=== PATIENT | male | born 1995 ===

== ENCOUNTER 2018-06-16 16:06 | Emergency (ER) | payer OTHER ==
--- NOTE | 2018-06-16 16:36 | RAD REPORT ---
EXAM DESCRIPTION: CT - Head Brain Wo Cont - 06/16/2018 4:29 pm CLINICAL HISTORY: elbow injury to head Trauma, head injury. COMPARISON: Facial Bones W/ Mpr dated 06/16/2018 TECHNIQUE: All CT scans are performed using dose optimization technique as appropriate and may inclu de automated exposure control or mA/KV adjustment according to patient size. FINDINGS: No intracranial hemorrhage, hydrocephalus or extra-axial fluid collection.No areas of brai n edema or evidence of midline shift. The paranasal sinuses and mastoids are clear. The calvarium is intact. IMPRESSION: No acute intracranial abnormality.
--- NOTE | 2018-06-16 16:40 | RAD REPORT ---
EXAM DESCRIPTION: CT - CTFB CLINICAL HISTORY: elbow injury to face Trauma to the face, pain and swelling. COMPARISON: No comparisons TECHNIQUE: Axial 2 mm thick images of the face were obtained with sagittal and coronal reconstructio n images. All CT scans are performed using dose optimization technique as appropriate and may include automated exposure control or mA/KV adjustment according to patient size. FINDINGS: No acute facial bone fracture is seen.The mandible is intact. The globes and orbital contents are grossly unremarkable.The paranasal sinuses and mastoids are clear . IMPRESSION: Negative for facial bone fracture.
[2018-06-16] MEDS ORDERED: LIDOCAINE 1% MPF 5 ML VIAL ONE (16:43)
--- NOTE | 2018-06-16 18:11 | ER ---
Nurse's Notes [facility] Name: Mina Dennison Age: 22 yrs Sex: Male : 1995 Arrival Date: 06/16/2018 Time: 16:03 Bed 27 Private MD: Diagnosis: Laceration without foreign body of other part of head-Above right eye Presentation: 06/16 16:03 Presenting complaint: Patient states: "I got elbowed". Laceration noted below right aa5 eyebrow, measuring approximately 1 cm long, no active bleeding noted. Denies LOC. Transition of care: [facility]. Complicating Factors: There are no complicating factors for this patient. Onset of symptoms was June 16, 2018. Risk Assessment: Do you want to hurt yourself or someone else? Patient reports no desire to harm self or others. Initial Sepsis Screen: Does the patient meet any 2 criteria? No. Patient's initial sepsis screen is negative. Does the patient have a suspected source of infection? No. Patient's initial sepsis screen is negative. Care prior to arrival: None. 16:03 Method Of Arrival: [employer]: [facility] Unit 5 16:03 Acuity: DAVIN 4 aa5 Historical: - Allergies: 16:03 No Known Allergies; aa5 - PMHx: 16:03 None; aa5 - PSHx: 16:03 None; aa5 - Immunization history:: Last tetanus immunization: unknown. - Social history:: Smoking status: Patient/guardian denies using tobacco. - Ebola Screening: : No symptoms or risks identified at this time. Screenin:07 Abuse screen: Denies threats or abuse. Nutritional screening: No deficits noted. aa5 Tuberculosis screening: No symptoms or risk factors identified. Fall Risk None identified. Assessment: 16:08 General: Appears comfortable, Behavior is calm, cooperative. Pain: Complains of pain in aa5 below right eyebrow Pain currently is 4 out of 10 on a pain scale. Quality of pain is described as aching. Neuro: Level of Consciousness is awake, alert, obeys commands, Oriented to person, place, time, situation. Cardiovascular: No deficits noted. Respiratory: Airway is patent Respiratory effort is even, unlabored, Respiratory pattern is regular, symmetrical. GI: No signs and/or symptoms were reported involving the gastrointestinal system. : No signs and/or symptoms were reported regarding the genitourinary system. EENT: No signs and/or symptoms were reported regarding the EENT system. Derm: Skin is pink, warm \\T\\ dry. Musculoskeletal: Range of motion: intact in all extremities. Injury Description: Laceration sustained to below right eyebrow is clean, 0.5 to 2.5 cm long, not bleeding, was sustained 1-2 hours ago. 17:11 Reassessment: Patient appears in no apparent distress at this time. Patient and/or em family updated on plan of care and expected duration. Pain level reassessed. Patient is alert, oriented x 3, equal unlabored respirations, skin warm/dry/pink. pending laceration repair. 17:59 Reassessment: Patient appears in no apparent distress at this time. Patient and/or em family updated on plan of care and expected duration. Pain level reassessed. Patient is alert, oriented x 3, equal unlabored respirations, skin warm/dry/pink. Vital Signs: 16:03 BP 105 / 78; Pulse 98; Resp 16 S; Temp 98.6(O); Pulse Ox 97% on R/A; Pain 4/10; aa5 17:12 BP 112 / 56; Pulse 80; Resp 18; Pulse Ox 98% on R/A; em 18:21 BP 102 / 65; Pulse 76; Resp 18; Pulse Ox 99% on R/A; em Tatiana Coma Score: 16:30 Eye Response: spontaneous(4). Verbal Response: oriented(5). Motor Response: obeys cp commands(6). Total: 15. ED Course: 16:03 Patient arrived in ED. aa5 16:03 Arm band placed on. aa5 16:03 Patient has correct armband on for positive identification. Bed in low position. Call aa5 light in reach. Side rails up X 1. 2 Residential guards at bedside. Pt restrained with handcuffs by alf guards. 16:05 Dar Douglas PA is PHCP. cp 16:05 Rajendra Colon MD is Attending Physician. cp 16:06 Triage completed. aa5 16:10 No provider procedures requiring assistance completed. aa5 16:11 Tito Mendoza LVN is Primary Nurse. em 16:29 CT completed. Patient tolerated procedure well. Patient moved to CT. Patient moved back wy from CT. 16:30 CT Head Brain wo Cont In Process Unspecified. EDMS 16:30 CT Facial Bones W/O Con In Process Unspecified. EDMS 16:47 Wound care: to laceration located on middle aspect of right eyebrow and outer aspect of jp3 right eyebrow was cleaned with Hibiclens, debrided using Betadine scrub, irrigated with normal saline, Patient tolerated well. 18:20 Patient did not have IV access during this emergency room visit. em Administered Medications: 17:44 Drug: Lidocaine (1 %) 5 ml {Note: administered by MELINA Dodge.} Volume: 5 ml; Route: em Infiltration; Site: wound; Outcome: 18:11 Discharge ordered by . eliezer 18:20 Discharged to Law Enforcement em 18:20 Condition: good 18:20 Discharge instructions given to patient, correctional officers Instructed on discharge instructions, follow up and referral plans. medication usage, wound care, Demonstrated understanding of instructions, follow-up care, medications, wound care, Prescriptions given X 2. 18:22 Patient left the ED. em Signatures: Dispatcher [employer] EDHI Tito Mendoza, THIOKOL OPERATOR THIOKOL OPERATOR em Paz Lopez, RN RN aa5 Dar Douglas PA PA cp Jordan, Nathan nj Pisarski, Jacob jp3
--- NOTE | 2018-06-16 18:11 | EDPHYS ---
Physician Documentation [facility] Name: Mina Dennison Age: 22 yrs Sex: Male : 1995 Arrival Date: 06/16/2018 Time: 16:03 Bed 27 Private MD: ED Physician Rajendra Colon HPI: 06/16 16:29 This 22 yrs old Male presents to ER via Law Enforcement with complaints of Laceration. cp 16:30 The patient or guardian reports injury, a laceration. The complaints affect the above cp right eye. 16:30 Context of injury: resulted from a direct blow, from elbow while playing basketball. cp Onset: The symptoms/episode began/occurred today. Associated signs and symptoms: Loss of consciousness: This patient did not experience any loss of consciousness. Historical: - Allergies: 16:03 No Known Allergies; aa5 - PMHx: 16:03 None; aa5 - PSHx: 16:03 None; aa5 - Immunization history:: Last tetanus immunization: unknown. - Social history:: Smoking status: Patient/guardian denies using tobacco. - Ebola Screening: : No symptoms or risks identified at this time. ROS: 16:35 Skin: Positive for laceration(s), of the above right eye. cp 16:35 Constitutional: Negative for fever, chills, and weight loss. cp 16:35 Neck: Negative for pain with movement, pain at rest, stiffness, bony tenderness. 16:35 Abdomen/GI: Negative for vomiting. 16:35 Neuro: Negative for altered mental status, headache, loss of consciousness, weakness. 16:35 All other systems are negative. Exam: 16:45 Constitutional: The patient appears in no acute distress, alert, awake, comfortable, cp well developed, well nourished. 16:45 Head/face: Noted is a laceration(s), that is deep, that is linear, of the above right cp eye, swelling, that is mild, tenderness. 16:45 Eyes: Pupils: equal, round, and reactive to light and accomodation, Extraocular movements: intact throughout, Conjunctiva: normal, no exudate, no injection, Lids and lashes: appear normal, bilaterally. 16:45 ENT: External ear(s): are unremarkable, Ear canal(s): are normal, clear, TM's: dullness, bilaterally, Nose: is normal, Mouth: Lips: moist, Oral mucosa: pink and intact, moist, Posterior pharynx: is normal, airway is patent, no erythema, no exudate, Dental exam: normal. 16:45 Neck: C-spine: vertebral tenderness, is not appreciated, crepitus, is not appreciated, ROM/movement: is normal, is supple, without pain, no range of motions limitations, no nuchal rigidity. 16:45 Chest/axilla: Inspection: normal, Palpation: is normal, no crepitus, no tenderness. 16:45 Cardiovascular: Rate: normal, Rhythm: regular. 16:45 Respiratory: the patient does not display signs of respiratory distress, Respirations: normal, Breath sounds: are clear throughout, no decreased breath sounds, no stridor, no wheezing. 16:45 Abdomen/GI: Inspection: abdomen appears normal, Palpation: abdomen is soft and non-tender, in all quadrants. 16:45 Back: pain, is absent, ROM is normal. 16:45 Musculoskeletal/extremity: Exam is negative for decreased range of motion, deformity, injury. 16:45 Neuro: Orientation: to person, place \T\ time. Mentation: is normal, Cerebellar function: is grossly normal, Motor: moves all fours, strength is normal, Sensation: is normal. Vital Signs: 16:03 BP 105 / 78; Pulse 98; Resp 16 S; Temp 98.6(O); Pulse Ox 97% on R/A; Pain 4/10; aa5 17:12 BP 112 / 56; Pulse 80; Resp 18; Pulse Ox 98% on R/A; em 18:21 BP 102 / 65; Pulse 76; Resp 18; Pulse Ox 99% on R/A; em Tatiana Coma Score: 16:30 Eye Response: spontaneous(4). Verbal Response: oriented(5). Motor Response: obeys cp commands(6). Total: 15. Laceration: 18:05 Wound Repair of 2cm ( 0.8in ) subcutaneous laceration to above right eye. Linear cp shaped.. Distal neuro/vascular/tendon intact. Anesthesia: Wound infiltrated with 3 mls of 1% lidocaine. Wound prep: Moderate cleansing by nurse. Subcutaneous tissue closed with 3 1-0 Vicryl using interrupted sutures and sterile technique. Dressed with steri strips. Patient tolerated well. MDM: 16:05 Patient medically screened. cp 18:10 Data reviewed: vital signs, nurses notes, radiologic studies, CT scan, and as a result, cp I will discharge patient. 18:10 Counseling: I had a detailed discussion with the patient and/or guardian regarding: the cp historical points, exam findings, and any diagnostic results supporting the discharge/admit diagnosis, radiology results, to return to the emergency department if symptoms worsen or persist or if there are any questions or concerns that arise at home. Response to treatment: the patient's symptoms have markedly improved after treatment, and as a result, I will discharge patient. 06/16 16:16 Order name: CT Head Brain wo Cont; Complete Time: 16:52 cp 06/16 16:16 Order name: CT Facial Bones W/O Con; Complete Time: 16:52 cp 06/16 16:16 Order name: Wound Care: please clean and irrigate wound; Complete Time: 16:48 cp 06/16 16:16 Order name: Prolene, Sutures: 6-0; Complete Time: 16:47 cp 06/16 16:16 Order name: Dressing - Wound; Complete Time: 16:47 cp 06/16 16:16 Order name: Gloves, Sterile; Complete Time: 16:48 cp 06/16 16:16 Order name: Setup Suture Tray; Complete Time: 16:48 cp Administered Medications: 17:44 Drug: Lidocaine (1 %) 5 ml {Note: administered by PA. Dar} Volume: 5 ml; Route: em Infiltration; Site: wound; Disposition: 18:30 Chart complete. cp 18:39 Co-signature as Attending Physician, Rajendra Colon MD. rn Disposition: 06/16/18 18:11 Discharged to Home. Impression: Laceration without foreign body of other part of head - Above right eye. - Condition is Stable. - Discharge Instructions: Facial Laceration, Sutured Wound Care. - Prescriptions for Keflex 500 mg Oral Capsule - take 1 capsule by ORAL route every 8 hours for 7 days; 21 capsule. Ibuprofen 800 mg Oral Tablet - take 1 tablet by ORAL route every 8 hours As needed take with food; 30 tablet. - Medication Reconciliation Form, Thank You Letter, Antibiotic Education, Prescription Opioid Use form. - Follow up: Private Physician; When: 1 - 2 days; Reason: Wound Recheck. - Problem is new. - Symptoms have improved. Signatures: Dispatcher [employer] EDTito Chu, UPTWISTER TENDER UPTWISTER TENDER em Rajendra Colon MD MD rn Paz Lopez RN RN aa5 Dar Douglas PA PA cp Corrections: (The following items were deleted from the chart) 18:22 18:11 06/16/2018 18:11 Discharged to Home. Impression: Laceration without foreign body em of other part of head - Above right eye. Condition is Stable. Forms are Medication Reconciliation Form, Thank You Letter, Antibiotic Education, Prescription Opioid Use. Follow up: Private Physician; When: 1 - 2 days; Reason: Wound Recheck. Problem is new. Symptoms have improved. cp
== END 2018-06-16 18:22 | disposition home or self-care (01) ==
LOC: ER 16:06
PROC: 0JQ10ZZ Repair Face Subcutaneous Tissue and Fascia, Open Approach (ICD-10-PCS; principal; 2018-06-16)
DX: S01.111A Laceration without foreign body of right eyelid and periocular area, initial encounter (principal); W50.0XXA Accidental hit or strike by another person, initial encounter; Y93.67 Activity, basketball
CPT/HCPCS: 70450; 70486; 76377; 99284